=== PATIENT | male | born 1935 | race Caucasian/White ===

== ENCOUNTER 2022-07-29 08:23 | Outpatient (CLI) | payer MEDICARE ==
[2022-07-29 11:01] LABS: Anion Gap 12 mmol/L (10-20); BUN (Urea Nitrogen) 15 mg/dL (8.4-25.7); Calc. Creatinine Clearance 0 mL/min (70-130); Calcium 9.3 mg/dL (7.8-10.44); Carbon Dioxide 28 mmol/L (23-31); Chloride 103 mmol/L (98-107); Estimated GFR 84; Glucose 80 mg/dL (83-110); Potassium 4.5 mmol/L (3.5-5.1); Sodium 138 mmol/L (136-145)
[2022-07-29 11:18] LABS: Hemoglobin 15.3 g/dL (13.5-17.5); Mean Corpuscular HGB CONC 34.5 g/dL (32.0-36.0); Mean Corpuscular Hemoglobin 30.7 pg (27.0-33.0); Mean Platelet Volume 11.3 fl (7.4-10.4); RBC Distribution Width 12.4 % (11.5-14.5); Red Blood Cell (RBC) Count 4.99 10x6/uL (4.32-5.72); White Blood Cell (WBC) Count 8.7 10x3/uL (3.5-10.5)
[2022-07-29 11:19] LABS: Platelet Count 128 10x3/uL (150-450)
== END 2022-07-29 08:24 | disposition home or self-care (01) ==
LOC: CSHLAB 08:23
PROVIDERS: ATTEND Otolaryngology Otolaryngic Allergy
DX: Z01.818 Encounter for other preprocedural examination (principal)
CPT/HCPCS: 80048; 85027; 93005; 93010

== ENCOUNTER 2022-08-03 05:57 | Inpatient (IN) | payer MEDICARE ==
[2022-08-03] MEDS ORDERED: EPINEPHrine 1 MG/ML AMP ONE (06:41)
[2022-08-03] MEDS ORDERED: Mupirocin 2% Ointment 22 GM Tube ONE (06:42)
[2022-08-03] MEDS ORDERED: Lidocaine 1% w/Epinephrine 1:100K 30 ML VIAL ONE (06:42)
[2022-08-03] MEDS ORDERED: Ondansetron ODT 4 MG TAB PO PRN (07:07)
[2022-08-03] MEDS ORDERED: Ondansetron PF 4 MG/2 ML Vial IVP PRN (07:07)
[2022-08-03] MEDS ORDERED: Acetaminophen/Codeine 30-300mg Tablet PO PRN (07:10)
[2022-08-03] MEDS ORDERED: Morphine 2 MG/ML VIAL SLOW IVP PRN (07:21)
[2022-08-03] MEDS ORDERED: CEFAZOLIN 1 GM VIAL ONE ×3 (07:24→11:26)
[2022-08-03] MEDS ORDERED: Fentanyl 100 MCG/2 ML VIAL ONE ×4 (07:27→09:33)
[2022-08-03] MEDS ORDERED: SUGAMMADEX SODIUM 200 MG/2 ML VIAL ONE (07:28)
[2022-08-03] MEDS ORDERED: Dexmedetomidine 200 MCG/2 ML VIAL ONE (07:28)
[2022-08-03] MEDS ORDERED: Succinylcholine 200 MG/10 ml SYRINGE FS ONE (07:29)
[2022-08-03] MEDS ORDERED: PHENYLEPHRINE-NS 100 MCG/ML 10 ML SYRINGE ONE (07:29)
[2022-08-03] MEDS ORDERED: Rocuronium Bromide 10 MG/ML (10ML VIAL) ONE (07:31)
[2022-08-03 07:40] LABS: SARS-CoV-2 NAA Rapid Test Not Detected (NotDetected)
[2022-08-03] MEDS ORDERED: ePHEDrine Sulfate 50 MG/10 ML VIAL ONE (07:54)
[2022-08-03] MEDS ORDERED: PROPOFOL 20 ML ONE (08:04)
[2022-08-03] MEDS: CEFAZOLIN 1 GM in Sodium Chloride 0.9% 100 ML IVPB SCH (17:46)
[2022-08-04] MEDS: CEFAZOLIN 1 GM in Sodium Chloride 0.9% 100 ML IVPB SCH ×3 (03:00→17:02)
[2022-08-04 04:02] LABS: Anion Gap 16 mmol/L (10-20); BUN (Urea Nitrogen) 16 mg/dL (8.4-25.7); Calc. Creatinine Clearance 131 mL/min (70-130); Calcium 8.7 mg/dL (7.8-10.44); Carbon Dioxide 23 mmol/L (23-31); Chloride 105 mmol/L (98-107); Estimated GFR 84; Glucose 116 mg/dL (83-110); Potassium 4.6 mmol/L (3.5-5.1); Sodium 139 mmol/L (136-145)
[2022-08-04 04:04] LABS: #Monocytes 1.1 10x3/uL (0.0-1.1); #Neutrophils 6.9 10x3/uL (1.5-8.4); %Basophils 0.3 % (0.0-2.0); %Eosinophils 0.2 % (0.0-6.0); %Lymphocytes 27.7 % (18.0-47.0); %Neutrophils 61.5 % (40.0-75.0); Hemoglobin 13.6 g/dL (13.5-17.5); Mean Corpuscular HGB CONC 33.7 g/dL (32.0-36.0); Mean Corpuscular Hemoglobin 30.2 pg (27.0-33.0); Mean Corpuscular Volume 89.6 fl (81.2-95.1); Mean Platelet Volume 11.5 fl (7.4-10.4); Platelet Count 111 10x3/uL (150-450); RBC Distribution Width 12.4 % (11.5-14.5); White Blood Cell (WBC) Count 11.2 10x3/uL (3.5-10.5)
[2022-08-04] MEDS: Mupirocin 2% Ointment 22 GM Tube TOP SCH ×3 (08:07→21:31)
[2022-08-04] MEDS: Acetaminophen/Codeine 30-300mg Tablet PO PRN (11:38)
[2022-08-05] MEDS: CEFAZOLIN 1 GM in Sodium Chloride 0.9% 100 ML IVPB SCH ×3 (02:38→17:19)
[2022-08-05] MEDS: Acetaminophen/Codeine 30-300mg Tablet PO PRN (06:14)
[2022-08-05] MEDS: Mupirocin 2% Ointment 22 GM Tube TOP SCH ×3 (09:54→20:24)
[2022-08-06] MEDS: CEFAZOLIN 1 GM in Sodium Chloride 0.9% 100 ML IVPB SCH ×2 (01:11→09:53)
[2022-08-06 05:27] VITALS: BP 135/90; TEMP 97.7
[2022-08-06] MEDS: Mupirocin 2% Ointment 22 GM Tube TOP SCH (09:52)
[2022-08-06 10:48] VITALS: BMI 31.1
== END 2022-08-06 12:20 | disposition home or self-care (01) | DRG 577 ==
LOC: CSHSDC 05:57 → CSHICU 13:45
PROVIDERS: ADMIT Otolaryngology Otolaryngic Allergy; ATTEND Otolaryngology Otolaryngic Allergy
PROC: 0CB90ZZ Excision of Left Parotid Gland, Open Approach (ICD-10-PCS; principal; 2022-08-03)
PROC: 0HX1XZZ Transfer Face Skin, External Approach (ICD-10-PCS; 2022-08-03)
PROC: 07T20ZZ Resection of Left Neck Lymphatic, Open Approach (ICD-10-PCS; 2022-08-03)
PROC: 0HB1XZZ Excision of Face Skin, External Approach (ICD-10-PCS; 2022-08-03)
DX: C44.329 Squamous cell carcinoma of skin of other parts of face (principal); C77.0 Secondary and unspecified malignant neoplasm of lymph nodes of head, face and neck; I48.91 Unspecified atrial fibrillation; G47.33 Obstructive sleep apnea (adult) (pediatric); Z98.49 Cataract extraction status, unspecified eye; Z88.6 Allergy status to analgesic agent; Z90.89 Acquired absence of other organs; Z90.79 Acquired absence of other genital organ(s); Z80.42 Family history of malignant neoplasm of prostate; Z82.49 Family history of ischemic heart disease and other diseases of the circulatory system; Z79.82 Long term (current) use of aspirin; Z85.46 Personal history of malignant neoplasm of prostate
CPT/HCPCS: 36415; 80048; 85025; 88305; 88307; 88309; 88331; 88332; 88341; 88342; 94760; J0171; J0690; J2272; J2405; J2704; J3010; J3490; U0002